=== PATIENT | female | born 1975 | race Caucasian/White ===

== ENCOUNTER 2016-11-13 17:59 | Emergency (ER) | payer BC ==
[~2016-11-13] VITALS: Ht 162.6 cm; Wt 84.2 kg
[~2016-11-13 17:59] MED LIST: FIORICET 50-301 EACH PO; MIDOL COMPLETE1 EACH PO
[2016-11-13] MEDS ORDERED: MOTRIN600 MG PO (21:18)
[2016-11-13 21:48] VITALS: BP 00/00
== END 2016-11-13 21:48 | disposition home or self-care (01) ==
LOC: EME 17:59
DX: S83.92XA Sprain of unspecified site of left knee, initial encounter (principal); S20.212A Contusion of left front wall of thorax, initial encounter; W10.9XXA Fall (on) (from) unspecified stairs and steps, initial encounter; Z88.7 Allergy status to serum and vaccine
CPT/HCPCS: 71020; 73564; 99281; 99284